=== PATIENT | male | born 1985 | race Two or more races ===

== ENCOUNTER 2017-07-31 14:27 | Emergency (ER) | payer BC ==
[2017-07-31 14:30] VITALS: BP 135/72
--- NOTE | 2017-07-31 15:21 | RAD ---
Examination: CT of the abdomen pelvis without contrast History: History of right flank pain, hematuria Comparison: None available Technique: Axial CT images of the abdomen pelvis were performed without contrast. Coronal and sagittal reformats are performed. PQRS Compliance Statement: One or more of the following individualized dose reduction techniques were utilized for this examination: 1. Automated exposure control 2. Adjustment of the mA and/or kV according to patient size 3. Use of iterative reconstruction technique Findings: The visualized bibasal lungs grossly appears unremarkable. No evidence of free air identified in the abdomen. Evaluation of the solid organs is limited due to lack of IV contrast. The evaluation of the bowel is limited due to lack of oral contrast. The visualized noncontrasted liver, spleen, adrenals grossly appears unremarkable. The gallbladder is mildly distended. The stomach is mildly distended. The visualized pancreas grossly appears unremarkable. The small bowel is nondilated. The visualized appendix grossly appears unremarkable. Feces and gas noted in the colon. No evidence of intrarenal collecting system calculi or hydronephrosis. The urinary bladder is mildly distended. There is mild thickening of the urinary bladder wall with minimal surrounding fat stranding. There is mild stranding identified about the distal left ureter. No evidence of lytic bony destructive lesion. Impression: 1. Mild inflammatory fat stranding identified about the mildly distended urinary bladder and distal left ureter likely cystitis with probable left distal ureteral pyelitis. Correlate with lab values.
[2017-07-31] MEDS ORDERED: DOXYCYCLINE HYCLATE 100 MG TABLET PO ONE (15:30)
[2017-07-31] MEDS ORDERED: HYDROcodone/APAP 5/325MG 1 TAB TABLET PO ONE (15:30)
[2017-07-31] MEDS ORDERED: cefTRIAXone IM 250 MG VIAL IM ONE ×2 (15:45→16:22)
--- NOTE | 2017-07-31 15:45 | ED.ADGEN ---
Past History Past Medical History: No Pertinent History Past Surgical History: No Surgical History Alcohol Use: Occasionally Drug Use: None Adult General Chief Complaint Chief Complaint Urinary frequency urgency, bladder pain HPI HPI Patient is a 32-year-old nondiabetic male who presents with urinary frequency urgency and bloody urine. Symptoms began earlier this morning. Patient reports hesitancy urgency and incomplete evacuation. No flank pain, nausea vomiting or sweats. No history of kidney stones. Patient states he is a long-term monogamous relationship. No prior history of STDs. Patient denies other symptoms or complaints. Review of Systems Review of Systems Review symptoms as per history of present illness. All other review symptoms are negative. Current Medications Current Medications Current Medications Medications (Trade) Dose Ordered Sig/Dl Start Time Stop Time Status Last Admin Dose Admin Acetaminophen/ Hydrocodone Bitart (Lortab 5/325) 1 tab 1X ONCE 07/31/17 15:30 07/31/17 15:31 UNV Ceftriaxone Sodium (Rocephin Im) 250 mg 1X ONCE 07/31/17 15:45 07/31/17 15:46 UNV Doxycycline Hyclate (Vibra-Tab) 100 mg 1X ONCE 07/31/17 15:30 07/31/17 15:31 UNV Physical Exam Physical Exam Constitutional: Well developed, well nourished, no acute distress, non-toxic appearance. [] HENT: Normocephalic, atraumatic, bilateral external ears normal, oropharynx moist, no oral exudates, nose normal. [] Eyes: PERRLA, EOMI, conjunctiva normal, no discharge. [] Neck: Normal range of motion, no tenderness, supple, no stridor. [] Cardiovascular:Heart rate regular rhythm, no murmur [] Lungs & Thorax: Bilateral breath sounds clear to auscultation [] Abdomen: Bowel sounds normal, soft, no tenderness, no masses, no pulsatile masses. [] Skin: Warm, dry, no erythema, no rash. [] Back: No tenderness, no CVA tenderness. [] Extremities: No tenderness, no cyanosis, no clubbing, ROM intact, no edema. [] Neurologic: Alert and oriented X 3, normal motor function, normal sensory function, no focal deficits noted. [] Psychologic: Affect normal, judgement normal, mood normal. [] Current Patient Data Vital Signs Vital Signs Date Time Temp Pulse Resp B/P (MAP) Pulse Ox O2 Delivery O2 Flow Rate FiO2 07/31/17 14:30 98.9 109 20 98 Room Air EKG EKG [] Radiology/Procedures Radiology/Procedures [CT abdomen pelvis: Cystitis with possible pyelitis.] Course & Med Decision Making Course & Med Decision Making Pertinent Labs and Imaging studies reviewed. (See chart for details) [Urine culture sent. Patient given Rocephin and prescription for doxycycline with instructions to follow-up with PCP for urine culture results. Return precautions reviewed. Patient verbalizes understanding. Discharge instructions prior to departure.] Final Impression Final Impression [1. right flank pain 2. acute cystitis] Problems: Dragon Disclaimer Dragon Disclaimer This electronic medical record was generated, in whole or in part, using a voice recognition dictation system. ERIN MCGRAW DO Jul 31, 2017 15:45
[2017-07-31] MEDS ORDERED: DOXYCYCLINE HYCLATE 100 MG TABLET ONE (16:21)
[2017-07-31] MEDS ORDERED: HYDROcodone/APAP 5/325MG 1 TAB TABLET ONE (16:22)
[2017-07-31 16:48] LABS: BILIRUBIN,URINE NEG (NEG); CLARITY,URINE CLEAR; COLOR,URINE YELLOW; GLUCOSE,URINE NEG (NEG)
[2017-07-31 16:53] LABS: BACTERIA,URINE FEW /HPF (0-FEW); NITRITE,URINE NEG (NEG); RBC,URINE 20-40 /HPF (0-2); UROBILINOGEN,URINE 2 mg/dL (0.2 mg/dL); WBC,URINE >40 /HPF (0-4)
== END 2017-07-31 16:31 | disposition home or self-care (01) ==
LOC: ER 14:27
DX: N30.01 Acute cystitis with hematuria (principal)
CPT/HCPCS: 74176; 81001; 87086; 96372; 99285; J0696; 36415; 87491; 87591